=== PATIENT | male | born 1955 | race African-American/Black ===

== ENCOUNTER 2019-01-23 20:04 | Inpatient (IN) | payer MEDICARE, OTHER ==
[~2019-01-23] VITALS: Ht 182.9 cm; Wt 81.6 kg
[~2019-01-23 20:04] MED LIST: ASPI-986 PO; ATOR20TA65 PO; CLOP75TA4; COR6 PO; ISOS1TAB PO; LEVO75TA7 PO; LOSA25TA26 PO; NITR0.4T; ROFL500T PO; [UNRECOGNIZED DRUG - OTHER] SQ
[2019-01-23] MEDS ORDERED: ASPIRIN 81MG TABLET PO ONE (20:45)
[2019-01-23] MEDS ORDERED: MORPHINE SULFATE 4 MG/ML CPJ (NOT FOR IM USE) IV ONE (21:00)
[2019-01-23 21:05] LABS: BASOPHILS % 0.7 % (0.0-2.0); EOSINOPHILS % 2.3 % (0.0-5.0); HEMATOCRIT. 35.3 % (42.0-52.0); HEMOGLOBIN. 11.6 g/dL (14.0-18.0); LYMPHOCYTES % 20.9 % (20.0-50.0); MEAN CORPUSCULAR HEMOGLOBIN 28.2 pg (28.0-32.0); MEAN CORPUSCULAR VOLUME 86.2 fL (80.0-94.0); MEAN PLATELET VOLUME 8.1 fl (7.4-10.4); MONOCYTES % 12.8 % (2.0-8.0); NEUTROPHILS % 63.3 % (40.0-76.0); PLATELET 245 x1000/uL (130-400); RED CELL DISTRIBUTION WIDTH 14.1 % (11.6-14.6)
[2019-01-23 21:07] LABS: CHLORIDE 104 mEq/L (98-107)
[2019-01-23 21:25] LABS: BG BASE EXCESS -11.4 mmol/L (-2.0-2.0); BG BILEVEL POS AIRWAY PRESSURE 18/5; BG CARBOXYHEMOGLOBIN 0.3 % (0.5-1.5); BG DEOXYHEMOGLOBIN 1.9 % (0.0-5.0); BG FRACTION INSPIRED OXYGEN 100; BG HCO3 ACT 15.2 mmol/L (22.0-26.0); BG METHEMOGLOBIN 0.4 % (0.0-1.5); BG OXYGEN SATURATION 98.1 % (92.0-98.5); BG OXYHEMOGLOBIN 97.4 % (94.0-97.0); BG PCO2 36.9 mmHg (35.0-45.0); BG PH 7.234 (7.350-7.450); BG PO2 144.3 mmHg (75.0-100.0); BG SAMPLE SITE LEFT RADIAL; BG TIDAL VOLUME(mL) 961 mL; BG TOTAL HEMOGLOBIN 12.1 g/dL (12.0-18.0); BG VENT MODE MASK - BIPAP; BG VENT RATE 18 set
[2019-01-24] VITALS (65 sets, daily range): BP systolic 90–159; BP diastolic 56–94
[2019-01-24] MEDS ORDERED: FUROSEMIDE 40MG/4ML VIAL IVP ONE (00:45)
[2019-01-24] MEDS ORDERED: FAMOTIDINE 20MG/2ML VIAL IV ONE (01:45)
[2019-01-24] MEDS ORDERED: LORAZEPAM 2MG/ML CPJ IV ONE (01:45)
[2019-01-24] MEDS ORDERED: ONDANSETRON HCL 4MG/2ML INJ IV ONE (01:45)
[2019-01-24] MEDS ORDERED: ONDANSETRON HCL 4MG/2ML INJ IV PRN (02:00)
[2019-01-24] MEDS ORDERED: ENOXAPARIN 30MG/0.3ML SYR SUBCUT ONE (02:00)
[2019-01-24] MEDS ORDERED: DEXTROSE 50% WATER 50ML SYRINGE IV PRN (02:00)
[2019-01-24] MEDS ORDERED: ACETAMINOPHEN 325MG TABLET PO PRN (02:00)
[2019-01-24] MEDS ORDERED: MAGNESIUM/ALUMINUM HYDROXIDE/SIMETHICONE 30ML UDC PO PRN (02:00)
[2019-01-24] MEDS ORDERED: HYDRALAZINE 20MG/ML VIAL IV PRN (02:00)
[2019-01-24] MEDS ORDERED: CLONIDINE 0.1MG TABLET PO PRN (02:00)
[2019-01-24 02:18] LABS: INR 1.1; PARTIAL THROMBOPLASTIN TIME 26.3 sec (23.4-31.0); PROTHROMBIN TIME 10.8 sec (9.6-11.0)
[2019-01-24] MEDS ORDERED: MORPHINE SULFATE 4 MG/ML CPJ (NOT FOR IM USE) IV PRN (02:34)
[2019-01-24] MEDS: LISINOPRIL 5MG TABLET PO SCH ×2 (04:30→21:23)
[2019-01-24] MEDS: FUROSEMIDE 40MG/4ML VIAL IVP SCH ×2 (04:40→17:11)
[2019-01-24] MEDS: SODIUM CHLORIDE 0.9% INJ 3ML FLUSH IVF SCH ×3 (04:41→21:34)
[2019-01-24] MEDS: NITROGLYCERIN OINT 1GM/INCH UDPKT TD SCH ×3 (05:53→22:00)
[2019-01-24] MEDS: CLOPIDOGREL 75MG TABLET PO SCH (07:04)
[2019-01-24] MEDS: BLOOD SUGAR DIAGNOSTIC STRIP TEST SCH ×4 (07:50→21:26)
[2019-01-24] MEDS: INSULIN LISPRO 100 UNITS/ML SUBCUT SCH ×4 (08:20→21:34)
[2019-01-24] MEDS: CARVEDILOL 6.25 MG TABLET PO SCH ×2 (09:00→21:26)
[2019-01-24] MEDS: ASPIRIN 81MG EC TABLET PO SCH (09:02)
[2019-01-24] MEDS: FAMOTIDINE 20MG/2ML VIAL IV SCH (09:03)
[2019-01-24 09:14] LABS: BG BASE EXCESS -6.9 mmol/L (-2.0-2.0); BG BILEVEL POS AIRWAY PRESSURE 18/5; BG DEOXYHEMOGLOBIN 3.3 % (0.0-5.0); BG FRACTION INSPIRED OXYGEN 50; BG HCO3 ACT 17.5 mmol/L (22.0-26.0); BG METHEMOGLOBIN 0.2 % (0.0-1.5); BG OXYGEN SATURATION 96.7 % (92.0-98.5); BG OXYHEMOGLOBIN 96.5 % (94.0-97.0); BG PCO2 31.2 mmHg (35.0-45.0); BG PH 7.366 (7.350-7.450); BG PO2 96.4 mmHg (75.0-100.0); BG SAMPLE SITE RIGHT RADIAL; BG VENT MODE MASK - BIPAP; BG VENT RATE 22 set
[2019-01-24] MEDS ORDERED: ENOXAPARIN 40MG/0.4ML SYR SUBCUT SCH (10:00)
[2019-01-24] MEDS ORDERED: IPRATROPIUM/ALBUTEROL 0.5-3(2.5)MG/3ML NEB HHN PRN (10:15)
[2019-01-24] MEDS ORDERED: ENOXAPARIN 60MG/0.6ML SYR SUBCUT NR (11:30)
[2019-01-24] MEDS: IPRATROPIUM/ALBUTEROL 0.5-3(2.5)MG/3ML NEB HHN SCH ×2 (13:03→20:07)
[2019-01-24] MEDS: MORPHINE SULFATE 4 MG/ML CPJ (NOT FOR IM USE) IV PRN ×2 (14:34→19:26)
[2019-01-24] MEDS: ENOXAPARIN 60MG/0.6ML SYR SUBCUT SCH (21:00)
[2019-01-24] MEDS: ATORVASTATIN CALCIUM 20MG TABLET PO SCH (21:23)
[2019-01-25] VITALS (47 sets, daily range): BP systolic 84–142; BP diastolic 54–89
[2019-01-25] MEDS: IPRATROPIUM/ALBUTEROL 0.5-3(2.5)MG/3ML NEB HHN SCH ×4 (00:17→21:03)
[2019-01-25] MEDS: SODIUM CHLORIDE 0.9% INJ 3ML FLUSH IVF SCH ×3 (05:27→21:23)
[2019-01-25] MEDS: NITROGLYCERIN OINT 1GM/INCH UDPKT TD SCH ×3 (05:28→21:24)
[2019-01-25 05:49] LABS: BASOPHILS % 0.2 % (0.0-2.0); EOSINOPHILS % 0.2 % (0.0-5.0); HEMATOCRIT. 29.2 % (42.0-52.0); HEMOGLOBIN. 9.8 g/dL (14.0-18.0); LYMPHOCYTES % 10.4 % (20.0-50.0); MEAN CORPUSCULAR HEMOGLOBIN 28.5 pg (28.0-32.0); MEAN PLATELET VOLUME 8.5 fl (7.4-10.4); MONOCYTES % 12.1 % (2.0-8.0); NEUTROPHILS % 77.1 % (40.0-76.0); PLATELET 176 x1000/uL (130-400); RED BLOOD CELL COUNT 3.43 mill/uL (4.7-6.1); RED CELL DISTRIBUTION WIDTH 14.2 % (11.6-14.6)
[2019-01-25] MEDS: BLOOD SUGAR DIAGNOSTIC STRIP TEST SCH ×4 (07:50→21:07)
[2019-01-25] MEDS: INSULIN LISPRO 100 UNITS/ML SUBCUT SCH ×4 (08:00→21:00)
[2019-01-25] MEDS: ASPIRIN 81MG EC TABLET PO SCH (08:15)
[2019-01-25] MEDS: LISINOPRIL 5MG TABLET PO SCH (08:15)
[2019-01-25] MEDS: FAMOTIDINE 20MG/2ML VIAL IV SCH (08:15)
[2019-01-25] MEDS: CARVEDILOL 6.25 MG TABLET PO SCH (08:15)
[2019-01-25] MEDS: MORPHINE SULFATE 4 MG/ML CPJ (NOT FOR IM USE) IV PRN ×4 (08:15→20:11)
[2019-01-25] MEDS: CLOPIDOGREL 75MG TABLET PO SCH (08:15)
[2019-01-25] MEDS: ENOXAPARIN 60MG/0.6ML SYR SUBCUT SCH (08:16)
[2019-01-25] MEDS ORDERED: SODIUM CHLORIDE 0.45% 1,000 ML IV SCH (08:45)
[2019-01-25 10:28] LABS: BG BASE EXCESS -2.5 mmol/L (-2.0-2.0); BG BILEVEL POS AIRWAY PRESSURE 18/5; BG CARBOXYHEMOGLOBIN 0.3 % (0.5-1.5); BG DEOXYHEMOGLOBIN 1.6 % (0.0-5.0); BG FRACTION INSPIRED OXYGEN 50; BG HCO3 ACT 21.9 mmol/L (22.0-26.0); BG METHEMOGLOBIN 0.3 % (0.0-1.5); BG OXYGEN SATURATION 98.4 % (92.0-98.5); BG OXYHEMOGLOBIN 97.8 % (94.0-97.0); BG PCO2 36.2 mmHg (35.0-45.0); BG PH 7.399 (7.350-7.450); BG PO2 143.5 mmHg (75.0-100.0); BG SAMPLE SITE RIGHT RADIAL; BG VENT MODE MASK - BIPAP; BG VENT RATE 14 set
[2019-01-25] MEDS: SODIUM CHLORIDE 0.9% 1,000 ML IV SCH (10:32)
[2019-01-25] MEDS: LORAZEPAM 2MG/ML CPJ IV PRN ×2 (10:42→17:23)
[2019-01-25] MEDS: CITRIC ACID/SODIUM CITRATE SOLN 15ML UDC PO SCH ×2 (11:45→21:22)
[2019-01-25] MEDS: ATORVASTATIN CALCIUM 20MG TABLET PO SCH (21:23)
[2019-01-25] MEDS: CARVEDILOL 3.125 MG TABLET PO SCH (21:23)
[2019-01-26] VITALS (29 sets, daily range): BP systolic 90–144; BP diastolic 51–109
[2019-01-26] MEDS: MORPHINE SULFATE 4 MG/ML CPJ (NOT FOR IM USE) IV PRN ×5 (00:41→23:56)
[2019-01-26] MEDS: IPRATROPIUM/ALBUTEROL 0.5-3(2.5)MG/3ML NEB HHN SCH ×4 (02:44→21:28)
[2019-01-26] MEDS: LORAZEPAM 2MG/ML CPJ IV PRN (04:06)
[2019-01-26] MEDS: SODIUM CHLORIDE 0.9% INJ 3ML FLUSH IVF SCH ×3 (05:32→21:23)
[2019-01-26 05:40] LABS: HEMOGLOBIN. 9.1 g/dL (14.0-18.0); MEAN CORPUSCULAR HEMOGLOBIN 28.5 pg (28.0-32.0); MEAN CORPUSCULAR VOLUME 84.2 fL (80.0-94.0); MEAN PLATELET VOLUME 7.8 fl (7.4-10.4); PLATELET 158 x1000/uL (130-400); RED BLOOD CELL COUNT 3.21 mill/uL (4.7-6.1); RED CELL DISTRIBUTION WIDTH 13.7 % (11.6-14.6)
[2019-01-26] MEDS: NITROGLYCERIN OINT 1GM/INCH UDPKT TD SCH ×3 (05:45→21:22)
[2019-01-26] MEDS: SODIUM CHLORIDE 0.9% 1,000 ML IV SCH ×2 (05:45→19:24)
[2019-01-26 05:55] LABS: PHOSPHORUS 5.4 mg/dL (2.5-4.9)
[2019-01-26] MEDS: DIPHENHYDRAMINE 50MG/ML VIAL IV PRN (06:02)
[2019-01-26 07:25] LABS: PLATELET ESTIMATE NORMAL
[2019-01-26] MEDS: BLOOD SUGAR DIAGNOSTIC STRIP TEST SCH ×4 (07:50→20:21)
[2019-01-26] MEDS: INSULIN LISPRO 100 UNITS/ML SUBCUT SCH ×4 (08:04→20:21)
[2019-01-26] MEDS: CLOPIDOGREL 75MG TABLET PO SCH (08:38)
[2019-01-26] MEDS: CITRIC ACID/SODIUM CITRATE SOLN 15ML UDC PO SCH ×2 (08:38→21:21)
[2019-01-26] MEDS: CARVEDILOL 3.125 MG TABLET PO SCH ×2 (08:38→21:22)
[2019-01-26] MEDS: FAMOTIDINE 20MG/2ML VIAL IV SCH (08:38)
[2019-01-26] MEDS: ASPIRIN 81MG EC TABLET PO SCH (08:38)
[2019-01-26] MEDS ORDERED: ENOXAPARIN 60MG/0.6ML SYR SUBCUT SCH (09:00)
[2019-01-26] MEDS: ATORVASTATIN CALCIUM 20MG TABLET PO SCH (21:21)
[2019-01-27] VITALS (12 sets, daily range): BP systolic 107–165; BP diastolic 68–94
[2019-01-27] MEDS: IPRATROPIUM/ALBUTEROL 0.5-3(2.5)MG/3ML NEB HHN SCH ×4 (00:48→21:38)
[2019-01-27] MEDS: MORPHINE SULFATE 4 MG/ML CPJ (NOT FOR IM USE) IV PRN ×3 (03:58→23:33)
[2019-01-27] MEDS: SODIUM CHLORIDE 0.9% INJ 3ML FLUSH IVF SCH ×3 (05:53→21:23)
[2019-01-27] MEDS: NITROGLYCERIN OINT 1GM/INCH UDPKT TD SCH ×3 (05:55→21:23)
[2019-01-27] MEDS: INSULIN LISPRO 100 UNITS/ML SUBCUT SCH ×4 (06:00→20:15)
[2019-01-27] MEDS: BLOOD SUGAR DIAGNOSTIC STRIP TEST SCH ×4 (06:00→20:15)
[2019-01-27 07:54] LABS: BASOPHILS % 0.4 % (0.0-2.0); EOSINOPHILS % 3.4 % (0.0-5.0); HEMATOCRIT. 28.1 % (42.0-52.0); HEMOGLOBIN. 9.5 g/dL (14.0-18.0); LYMPHOCYTES % 9.1 % (20.0-50.0); MEAN CORPUSCULAR HEMOGLOBIN 28.8 pg (28.0-32.0); MEAN CORPUSCULAR VOLUME 84.7 fL (80.0-94.0); MEAN PLATELET VOLUME 8.1 fl (7.4-10.4); MONOCYTES % 14.5 % (2.0-8.0); NEUTROPHILS % 72.6 % (40.0-76.0); PLATELET 207 x1000/uL (130-400); RED BLOOD CELL COUNT 3.31 mill/uL (4.7-6.1); RED CELL DISTRIBUTION WIDTH 13.7 % (11.6-14.6)
[2019-01-27 09:28] LABS: PHOSPHORUS 2.7 mg/dL (2.5-4.9)
[2019-01-27] MEDS ORDERED: THROAT LOZENGES-BENZOCAINE/MENTH/CETYLPYRD CL LOZENGES MM PRN (09:45)
[2019-01-27] MEDS: CLOPIDOGREL 75MG TABLET PO SCH (10:09)
[2019-01-27] MEDS: FAMOTIDINE 20MG/2ML VIAL IV SCH (10:09)
[2019-01-27] MEDS: ASPIRIN 81MG EC TABLET PO SCH (10:09)
[2019-01-27] MEDS: CARVEDILOL 3.125 MG TABLET PO SCH ×2 (10:10→20:41)
[2019-01-27] MEDS: CITRIC ACID/SODIUM CITRATE SOLN 15ML UDC PO SCH (10:15)
[2019-01-27] MEDS: SODIUM CHLORIDE 0.9% 1,000 ML IV SCH (10:15)
[2019-01-27] MEDS: HYDROCODONE/ACETAMINOPHEN 5/325MG TABLET PO PRN (11:52)
[2019-01-27] MEDS: FUROSEMIDE 20MG/2ML VIAL IVP NR ×2 (11:55→15:13)
[2019-01-27] MEDS ORDERED: ENOXAPARIN 60MG/0.6ML SYR SUBCUT NR (14:00)
[2019-01-27] MEDS: ATORVASTATIN CALCIUM 20MG TABLET PO SCH (20:40)
[2019-01-28] VITALS (11 sets, daily range): BP systolic 124–173; BP diastolic 68–98
[2019-01-28] MEDS: IPRATROPIUM/ALBUTEROL 0.5-3(2.5)MG/3ML NEB HHN SCH ×5 (02:05→21:06)
[2019-01-28] MEDS: MORPHINE SULFATE 4 MG/ML CPJ (NOT FOR IM USE) IV PRN (04:02)
[2019-01-28] MEDS: SODIUM CHLORIDE 0.9% INJ 3ML FLUSH IVF SCH ×3 (05:14→21:13)
[2019-01-28] MEDS: NITROGLYCERIN OINT 1GM/INCH UDPKT TD SCH ×3 (05:15→21:13)
[2019-01-28] MEDS: INSULIN LISPRO 100 UNITS/ML SUBCUT SCH ×4 (06:12→20:27)
[2019-01-28] MEDS: BLOOD SUGAR DIAGNOSTIC STRIP TEST SCH ×4 (06:12→20:27)
[2019-01-28 07:09] LABS: HEMATOCRIT. 29.6 % (42.0-52.0); MEAN CORPUSCULAR HEMOGLOBIN 28.5 pg (28.0-32.0); MEAN CORPUSCULAR VOLUME 84.1 fL (80.0-94.0); MEAN PLATELET VOLUME 7.5 fl (7.4-10.4); PLATELET 223 x1000/uL (130-400); RED BLOOD CELL COUNT 3.53 mill/uL (4.7-6.1); RED CELL DISTRIBUTION WIDTH 13.6 % (11.6-14.6)
[2019-01-28] MEDS ORDERED: FENTANYL CITRATE/PF 50MCG/ML 2ML VIAL ONE (07:27)
[2019-01-28] MEDS ORDERED: MIDAZOLAM HCL 2 MG/2 ML VIAL ONE (07:27)
[2019-01-28 07:28] LABS: CHLORIDE 107 mEq/L (98-107)
[2019-01-28] MEDS ORDERED: LIDOCAINE HCL 1% 20ML VIAL (Pyxis) INJ ONE (07:28)
[2019-01-28] MEDS ORDERED: IODIXANOL 320MG/ML 100 ML BOTTLE IV ONE (07:28)
[2019-01-28 07:40] LABS: PHOSPHORUS 3.3 mg/dL (2.5-4.9)
[2019-01-28] MEDS: ASPIRIN 81MG EC TABLET PO SCH (07:59)
[2019-01-28] MEDS: CLOPIDOGREL 75MG TABLET PO SCH (07:59)
[2019-01-28] MEDS ORDERED: IOHEXOL-300 100 ML BOTTLE ONE (08:19)
[2019-01-28] MEDS ORDERED: ASPIRIN 325MG EC TABLET PO ONE (09:43)
[2019-01-28] MEDS ORDERED: CLOPIDOGREL 75MG TABLET ONE (09:43)
[2019-01-28] MEDS ORDERED: ACETAMINOPHEN 325MG TABLET PO PRN (10:00)
[2019-01-28] MEDS ORDERED: ATROPINE SULFATE 1MG/10ML SYR IV PRN (10:00)
[2019-01-28] MEDS ORDERED: ONDANSETRON HCL 4MG/2ML INJ IV PRN (10:00)
[2019-01-28 10:20] LABS: PLATELET ESTIMATE NORMAL
[2019-01-28] MEDS: HYDROCODONE/ACETAMINOPHEN 5/325MG TABLET PO PRN ×2 (10:39→18:21)
[2019-01-28] MEDS: FAMOTIDINE 20MG/2ML VIAL IV SCH (10:40)
[2019-01-28] MEDS: CARVEDILOL 3.125 MG TABLET PO SCH ×2 (10:41→20:26)
[2019-01-28] MEDS: LORAZEPAM 2MG/ML CPJ IV PRN (11:27)
[2019-01-28] MEDS ORDERED: PHENYLEPHRINE 100MCG/ML 10ML VIAL (CATH LAB) IV ONE (14:39)
[2019-01-28] MEDS ORDERED: NITROGLYCERIN 50MCG/ML 10ML VIAL (CATH LAB) IV ONE (14:39)
[2019-01-28] MEDS ORDERED: NICARDIPINE 100MCG/ML 10ML VIAL (CATH LAB) IV ONE (14:39)
[2019-01-28] MEDS ORDERED: HEPARIN SODIUM 1,000 UNIT/1ML VIAL IV ONE (14:39)
[2019-01-28] MEDS: ATORVASTATIN CALCIUM 20MG TABLET PO SCH (20:23)
[2019-01-28] MEDS: DIPHENHYDRAMINE 50MG/ML VIAL IV PRN (22:20)
[2019-01-29] VITALS (10 sets, daily range): BP systolic 110–148; BP diastolic 57–81
[2019-01-29] MEDS: IPRATROPIUM/ALBUTEROL 0.5-3(2.5)MG/3ML NEB HHN SCH ×3 (02:18→13:28)
[2019-01-29] MEDS: SODIUM CHLORIDE 0.9% INJ 3ML FLUSH IVF SCH ×2 (05:46→13:55)
[2019-01-29] MEDS: NITROGLYCERIN OINT 1GM/INCH UDPKT TD SCH ×2 (05:46→13:55)
[2019-01-29] MEDS: BLOOD SUGAR DIAGNOSTIC STRIP TEST SCH ×2 (06:49→11:49)
[2019-01-29] MEDS: INSULIN LISPRO 100 UNITS/ML SUBCUT SCH ×2 (06:50→11:49)
[2019-01-29 07:51] LABS: HEMATOCRIT. 28.4 % (42.0-52.0); HEMOGLOBIN. 9.7 g/dL (14.0-18.0); MEAN CORPUSCULAR HEMOGLOBIN 28.5 pg (28.0-32.0); MEAN CORPUSCULAR VOLUME 83.7 fL (80.0-94.0); MEAN PLATELET VOLUME 7.8 fl (7.4-10.4); PLATELET 214 x1000/uL (130-400); RED BLOOD CELL COUNT 3.39 mill/uL (4.7-6.1); RED CELL DISTRIBUTION WIDTH 13.7 % (11.6-14.6)
[2019-01-29 08:02] LABS: CHLORIDE 107 mEq/L (98-107)
[2019-01-29] MEDS: FAMOTIDINE 20MG/2ML VIAL IV SCH (08:09)
[2019-01-29] MEDS: CARVEDILOL 3.125 MG TABLET PO SCH (08:10)
[2019-01-29] MEDS ORDERED: ASPIRIN 325MG TABLET PO SCH (09:00)
[2019-01-29] MEDS ORDERED: CLOPIDOGREL 75MG TABLET PO SCH (09:00)
[2019-01-29 09:05] LABS: PLATELET ESTIMATE NORMAL
== END 2019-01-29 17:11 | disposition home health service (06) | DRG 246 ==
LOC: ER 21:48 → EDBEDREQ 01-24 00:55 → EDBEDREQSVC 01-24 00:55 → EDBEDREQTM 01-24 00:55 → ENRESERV 01-24 01:14 → CVICU 01-24 01:50 → EDBEDREQSVC 01-24 01:52 → EDBEDREQTM 01-24 01:52 → ENRESERV 01-24 01:58 → 3WST 01-26 14:55
PROVIDERS: ADMIT Internal Medicine; ATTEND Internal Medicine
PROC: 5A09457 Assistance with Respiratory Ventilation, 24-96 Consecutive Hours, Continuous Positive Airway Pressure (ICD-10-PCS; 2019-01-24)
PROC: 4A023N7 Measurement of Cardiac Sampling and Pressure, Left Heart, Percutaneous Approach (ICD-10-PCS; principal; 2019-01-28)
PROC: 027034Z Dilation of Coronary Artery, One Artery with Drug-eluting Intraluminal Device, Percutaneous Approach (ICD-10-PCS; 2019-01-28)
PROC: B212YZZ Fluoroscopy of Single Coronary Artery Bypass Graft using Other Contrast (ICD-10-PCS; 2019-01-28)
PROC: B218YZZ Fluoroscopy of Left Internal Mammary Bypass Graft using Other Contrast (ICD-10-PCS; 2019-01-28)
PROC: B312YZZ Fluoroscopy of Left Subclavian Artery using Other Contrast (ICD-10-PCS; 2019-01-28)
PROC: B211YZZ Fluoroscopy of Multiple Coronary Arteries using Other Contrast (ICD-10-PCS; 2019-01-28)
DX: I21.4 Non-ST elevation (NSTEMI) myocardial infarction (principal); J96.01 Acute respiratory failure with hypoxia; I50.23 Acute on chronic systolic (congestive) heart failure; I13.0 Hypertensive heart and chronic kidney disease with heart failure and stage 1 through stage 4 chronic kidney disease, or unspecified chronic kidney disease; R04.2 Hemoptysis; N17.9 Acute kidney failure, unspecified; E87.2 Acidosis; I42.9 Cardiomyopathy, unspecified; E11.22 Type 2 diabetes mellitus with diabetic chronic kidney disease; E11.51 Type 2 diabetes mellitus with diabetic peripheral angiopathy without gangrene; N18.3 Chronic kidney disease, stage 3 (moderate); I25.110 Atherosclerotic heart disease of native coronary artery with unstable angina pectoris; D64.9 Anemia, unspecified; D72.819 Decreased white blood cell count, unspecified; E03.9 Hypothyroidism, unspecified; E78.00 Pure hypercholesterolemia, unspecified; E78.5 Hyperlipidemia, unspecified; I08.0 Rheumatic disorders of both mitral and aortic valves; I77.1 Stricture of artery; I65.23 Occlusion and stenosis of bilateral carotid arteries; I27.20 Pulmonary hypertension, unspecified; R26.9 Unspecified abnormalities of gait and mobility; R53.81 Other malaise; Z79.02 Long term (current) use of antithrombotics/antiplatelets; Z95.5 Presence of coronary angioplasty implant and graft; Z95.1 Presence of aortocoronary bypass graft; Z79.4 Long term (current) use of insulin; Z79.82 Long term (current) use of aspirin; Z79.899 Other long term (current) drug therapy; Z88.2 Allergy status to sulfonamides; I25.2 Old myocardial infarction; Z98.42 Cataract extraction status, left eye; Z82.49 Family history of ischemic heart disease and other diseases of the circulatory system; Z83.3 Family history of diabetes mellitus
CPT/HCPCS: 36225; 36415; 36600; 71045; 76770; 80048; 82375; 82550; 82805; 82962; 83036; 83735; 83880; 84100; 84443; 84481; 84484; 85347; 92928; 93005; 93306; 93455; 93970; 94640; 94660; 96374; 96375; 96376; 97162; 97166; 99291; C1760; C1769; C1874; C1887; C1893; J1200; J1644; J1650; J1815; J1940; J2060; J2250; J2270; J2370; J2405; J3010; J3490; J7030; J7620; Q9967

== ENCOUNTER 2019-04-27 09:31 | Day surgery (SDC) | payer MEDICARE, OTHER ==
[~2019-04-27] VITALS: Ht 177.8 cm; Wt 77.6 kg
[~2019-04-27 09:31] MED LIST changes: +BALANCED SALT IRRIG SOLN 15ML ONE; +BALANCED SALT IRRIG SOLN COMB1 500ML OP ONE; +CIPROFLOXACIN 0.3% OPHTH SOLN 2.5ML ONE; +CYCLOPENTOLATE HCL 1% OPHTH DROPS 2ML LEFTEYE SCH; +LIDOCAINE HCL/PF 2% 20 MG/ML 10ML VIAL ONE; +PHENYLEPHRINE HCL 10% OPHTH DROPS 5ML LEFTEYE SCH; +PREDNISOLONE ACETATE 1% OPHTH DROPS 5ML ONE; +TETRACAINE 0.5% OPHTH DROPS 4ML ONE; +TROPICAMIDE 1% OPHTH DROPS 15ML LEFTEYE SCH
[2019-04-27 11:16] LABS: HEMATOCRIT. 29.6 % (42.0-52.0); HEMOGLOBIN. 9.7 g/dL (14.0-18.0); MEAN CORPUSCULAR HEMOGLOBIN 27.4 pg (28.0-32.0); MEAN CORPUSCULAR VOLUME 83.7 fL (80.0-94.0); MEAN PLATELET VOLUME 8.1 fl (7.4-10.4); PLATELET 158 x1000/uL (130-400); RED BLOOD CELL COUNT 3.53 mill/uL (4.7-6.1); RED CELL DISTRIBUTION WIDTH 19.4 % (11.6-14.6)
[2019-04-27 11:21] LABS: CHLORIDE 105 mEq/L (98-107)
[2019-04-27 11:22] LABS: INR 1.1; PROTHROMBIN TIME 11.4 sec (9.6-11.0)
[2019-04-27 12:54] LABS: PLATELET ESTIMATE NORMAL
[2019-04-27] MEDS ORDERED: HYALURONATE SODIUM 14 MG/ML 0.85ML SYRINGE IO ONE (13:54)
[2019-04-27] MEDS ORDERED: NITROGLYCERIN 0.4MG TABLET SL SL ONE (14:08)
[2019-04-27] MEDS ORDERED: NITROGLYCERIN 0.1MG/HR PATCH TOP NR (14:20)
[2019-04-27] MEDS ORDERED: FENTANYL CITRATE/PF 50MCG/ML 2ML VIAL ONE (15:43)
[2019-04-27] MEDS ORDERED: MIDAZOLAM HCL 2 MG/2 ML VIAL ONE (15:43)
[2019-04-27] MEDS ORDERED: DIPHENHYDRAMINE 50MG/ML VIAL ONE (15:44)
[2019-04-27] MEDS ORDERED: FURO80TA3 PO (15:57)
[2019-04-27] MEDS ORDERED: ALBU6.7H IH (15:57)
[2019-04-27] MEDS ORDERED: MELA3TAB PO (15:57)
[2019-04-27] MEDS ORDERED: METO10TA3 PO (15:57)
[2019-04-27] MEDS ORDERED: SACU1TAB7 PO (15:57)
[2019-04-27] MEDS ORDERED: SUCR1TAB PO (15:57)
[2019-04-27] MEDS ORDERED: PANT40TA4 PO (15:57)
[2019-04-27] MEDS ORDERED: TRAZ-251 PO (15:57)
[2019-04-27] MEDS ORDERED: CHOL3000 PO (15:57)
== END 2019-04-27 17:45 | disposition home or self-care (01) ==
LOC: OR 09:31
PROVIDERS: ATTEND Ophthalmology
DX: H25.89 Other age-related cataract (principal); I13.0 Hypertensive heart and chronic kidney disease with heart failure and stage 1 through stage 4 chronic kidney disease, or unspecified chronic kidney disease; I50.23 Acute on chronic systolic (congestive) heart failure; N18.3 Chronic kidney disease, stage 3 (moderate); E78.00 Pure hypercholesterolemia, unspecified; I25.709 Atherosclerosis of coronary artery bypass graft(s), unspecified, with unspecified angina pectoris; I70.213 Atherosclerosis of native arteries of extremities with intermittent claudication, bilateral legs; J44.9 Chronic obstructive pulmonary disease, unspecified; Z79.82 Long term (current) use of aspirin; Z79.899 Other long term (current) drug therapy; Z88.2 Allergy status to sulfonamides; Z87.891 Personal history of nicotine dependence; Z95.5 Presence of coronary angioplasty implant and graft; Z98.890 Other specified postprocedural states
CPT/HCPCS: 36415; 66984; 80048; 82962; 85025; 85610; 85730; 93005; J1200; J2250; J3010; J3490; V2632